=== PATIENT | female | born 2000 | race Caucasian/White ===

== ENCOUNTER 2019-03-18 11:47 | Emergency (ER) | payer OTHER ==
[~2019-03-18] VITALS: Ht 154.9 cm; Wt 77.1 kg
== END 2019-03-18 13:29 | disposition left against medical advice (07) ==
LOC: ED 11:47
DX: Z53.21 Procedure and treatment not carried out due to patient leaving prior to being seen by health care provider (principal)

== ENCOUNTER 2025-05-22 11:21 | Emergency (ER) | payer OTHER ==
[~2025-05-22] VITALS: Ht 154.9 cm; Wt 97.0 kg
[2025-05-22] MEDS ORDERED: IBUPROFEN 800 MG TAB PO ONE (13:00)
[2025-05-22] MEDS ORDERED: ACETAMINOPHEN 500 MG TAB PO ONE (13:15)
[2025-05-22] MEDS ORDERED: PSEUDOEPHEDRINE HCL 30 MG TAB PO ONE (13:45)
[2025-05-22] MEDS ORDERED: ONDANSETRON 4 MG TAB ODT SL ONE (13:45)
[2025-05-22] MEDS ORDERED: OXYCODONE HCL 5 MG TAB PO ONE (13:45)
[2025-05-22 13:57] VITALS: BP 119/85
== END 2025-05-22 13:57 | disposition home or self-care (01) ==
LOC: ED 11:21
DX: H92.03 Otalgia, bilateral (principal); J98.8 Other specified respiratory disorders; B97.89 Other viral agents as the cause of diseases classified elsewhere; Z88.2 Allergy status to sulfonamides
CPT/HCPCS: 99282; A9270